=== PATIENT | female | born 1955 | race Caucasian/White ===

== ENCOUNTER 2024-09-14 13:47 | Inpatient (IN) | payer MEDICARE, OTHER ==
[~2024-09-14] VITALS: Ht 160 cm; Wt 112.5 kg
[2024-09-14] MEDS ORDERED: POLY119P2 PO (14:06)
[2024-09-14] MEDS ORDERED: DIVA250T4 PO (14:06)
[2024-09-14] MEDS ORDERED: PANT40TA49 PO (14:06)
[2024-09-14] MEDS ORDERED: ASCO500C18 PO (14:06)
[2024-09-14] MEDS ORDERED: DOCU100T2 PO (14:06)
[2024-09-14] MEDS ORDERED: OLAN7.5T3 PO (14:06)
[2024-09-14] MEDS ORDERED: SENN8.6T19 PO (14:06)
[2024-09-14] MEDS ORDERED: APIX5TAB4 PO (14:06)
[2024-09-14] MEDS ORDERED: LOSA100T31 PO (14:06)
[2024-09-14] MEDS ORDERED: MAGN400O6 PO (14:06)
[2024-09-14] MEDS ORDERED: FLUT16SP EA NOSTRIL (14:06)
[2024-09-14] MEDS ORDERED: OLAN5TAB3 PO (14:06)
[2024-09-14] MEDS ORDERED: MULT-594 PO (14:06)
[2024-09-14] MEDS ORDERED: HYDR-894 PO (14:06)
[2024-09-14] MEDS ORDERED: FURO40TA5 PO (14:06)
[2024-09-14] MEDS ORDERED: ALBU5SOL7 IH (14:07)
[2024-09-14 14:37] LABS: BASOPHILS % (AUTO) 0.7 % (0.0-2.0); EOSINOPHILS % (AUTO) 0.8 % (0.0-7.0); HEMATOCRIT 43.2 % (31.2-41.9); HEMOGLOBIN 14.3 g/dL (10.9-14.3); LYMPHOCYTES # (AUTO) 1.1 K/uL (0.8-4.8); LYMPHOCYTES % (AUTO) 19.7 % (20.5-51.5); MEAN CORPUSCULAR HEMOGLOBIN 32.3 uug (24.7-32.8); MEAN CORPUSCULAR HGB CONC 33 g/dL (32.3-35.6); MEAN CORPUSCULAR VOLUME 97.7 fL (75.5-95.3); MONOCYTES # (AUTO) 0.7 K/uL (0.1-1.30); MONOCYTES % (AUTO) 13.2 % (0.0-11.0); NEUTROPHILS # (AUTO) 3.7 K/uL (1.8-8.9); NEUTROPHILS % (AUTO) 65.6 % (38.5-71.5); PLATELET COUNT (AUTO) 243 K/uL (179-408); RED BLOOD CELL COUNT(AUTO) 4.42 MIL/uL (3.63-4.92); RED CELL DISTRIBUTION WIDTH 16.6 % (12.3-17.7); WHITE BLOOD COUNT (AUTO) 5.6 K/uL (3.8-11.8)
[2024-09-14 14:42] LABS: CALCIUM 8.9 mg/dL (8.5-10.1); CARBON DIOXIDE 33 mmol/L (21-32); CHLORIDE 103 mmol/L (98-107); CREATININE 0.7 mg/dL (0.6-1.3); GLUCOSE 93 mg/dL (74-106); POTASSIUM 4.1 mmol/L (3.5-5.1); SODIUM SERUM 143 mmol/L (136-145); UREA NITROGEN, BLOOD 15 mg/dL (7-18)
[2024-09-14 14:43] LABS: DIFFERENTIAL COMMENT 1
[2024-09-14 14:55] LABS: ALANINE AMINOTRANSFERASE 19 U/L (14-59); ALBUMIN 3.1 g/dL (3.4-5.0); ALKALINE PHOSPHATASE 73 U/L (50-136); ASPARTATE AMINOTRANSFERASE 15 U/L (15-37); BILIRUBIN,DIRECT 0.2 mg/dL (0.0-0.2); BILIRUBIN,TOTAL 0.4 mg/dL (0.2-1.0); TOTAL PROTEIN, SERUM 7.1 g/dL (6.4-8.2)
[2024-09-14 15:13] LABS: NT-PRO BNP 316 pg/mL (0-125)
[2024-09-14] MEDS ORDERED: NITROGLYCERIN OINT 1 GM PACKET TP ONE (15:21)
[2024-09-14] MEDS ORDERED: FUROSEMIDE 40 MG/4 ML VIAL ONE (15:21)
[2024-09-14] MEDS: NITROGLYCERIN OINT 1 GM PACKET TP ONE (15:32)
[2024-09-14] MEDS: FUROSEMIDE 40 MG/4 ML VIAL IV ONE (15:32)
[2024-09-14 15:41] LABS: *BILIRUBIN,URIN NEGATIVE (NEGATIVE); *BLOOD, URINE NEGATIVE (NEGATIVE); *CLARITY,URINE CLEAR (CLEAR); *COLOR,URINE LIGHT YELLOW (YELLOW); *KETONES,URINE NEGATIVE (NEGATIVE); *PROTEIN,URINE NEGATIVE (NEGATIVE); *UROBILINOGEN,URINE 0.2 E.U./dl (NORMAL); LEUKOCYTE ESTERASE ,URINE 1+ (NEGATIVE); NITRITE, URINE NEGATIVE (NEGATIVE); PH,URINE 5.5 (5.0-8.0); UGLUCOSE NEGATIVE (NEGATIVE)
[2024-09-14 15:48] LABS: BACTERIA,URINE MODERATE /HPF (NONE SEEN); RBC,URINE NONE SEEN /HPF (0-3)
[2024-09-14 15:49] LABS: SQUAMOUS EPITHELIAL CELL,UR FEW /HPF (NONE SEEN)
[2024-09-14] MEDS ORDERED: APIX5TAB PO (17:27)
[2024-09-14] MEDS ORDERED: ASCO500T85 PO (17:27)
[2024-09-14] MEDS ORDERED: ALBU8.5H8 IH (17:28)
[2024-09-14 18:25] VITALS: BP 111/83; TEMP 98.6; O2SAT 94
[2024-09-14 20:00] VITALS: BP 102/57; TEMP 97; O2SAT 95
[2024-09-14] MEDS ORDERED: hydrALAZINE HCL 25 MG TABLET PO PRN (21:30)
[2024-09-14] MEDS ORDERED: ONDANSETRON 4 MG/2 ML VIAL IV PRN (21:30)
[2024-09-14] MEDS ORDERED: POLYETHYLENE GLYCOL 3350 238 GM POWDER PO PRN (21:30)
[2024-09-14] MEDS ORDERED: MAGNESIUM HYDROXIDE 30 ML LIQUID UDC PO PRN ×2 (21:30)
[2024-09-14] MEDS ORDERED: ACETAMINOPHEN 325 MG TABLET PO PRN (21:30)
[2024-09-14] MEDS ORDERED: REMEDY ESSENTIAL ZINC PASTE 113 GM TP PRN (21:30)
[2024-09-14] MEDS ORDERED: MIRALAX 17 GM POWD.PACK PO PRN (21:45)
[2024-09-14] MEDS ORDERED: ALBUTEROL SULFATE 2.5 MG/3 ML NEBU NEB PRN (21:45)
[2024-09-14] MEDS ORDERED: MEROPENEM 1GM/NS 100ML IVPB **ER PYXIS ONLY IV ONE (21:54)
[2024-09-14] MEDS ORDERED: VANCOMYCIN IV 200 ML ONE (21:54)
[2024-09-14] MEDS: MEROPENEM 1 G in IV NORMAL SALINE 100 ML IV ONE (22:07)
[2024-09-14 22:11] LABS: THYROID STIMULATING HORMONE 3.278 mIU/mL (0.358-3.740)
[2024-09-14] MEDS: VANCOMYCIN IV 1,000 MG in IV DEXTROSE 5% 250 ML IV ONE (22:57)
[2024-09-14] MEDS ORDERED: BUMETANIDE 2.5 MG/10 ML VIAL ONE (23:46)
[2024-09-14] MEDS ORDERED: BUMETANIDE 1 MG/4 ML VIAL ONE (23:47)
[2024-09-15] VITALS: BP 102/53; TEMP 97.4; O2SAT 94
[2024-09-15] MEDS: BUMETANIDE INJ 6 MG in IV DEXTROSE 5% 36 ML IV ONE (00:28)
[2024-09-15 04:00] VITALS: BP 104/68; TEMP 98.1; O2SAT 95
[2024-09-15 04:13] LABS: BASOPHILS % (AUTO) 0.6 % (0.0-2.0); EOSINOPHILS # (AUTO) 0.1 K/uL (0.0-0.7); EOSINOPHILS % (AUTO) 0.9 % (0.0-7.0); HEMATOCRIT 40.6 % (31.2-41.9); HEMOGLOBIN 13.7 g/dL (10.9-14.3); LYMPHOCYTES # (AUTO) 1.3 K/uL (0.8-4.8); LYMPHOCYTES % (AUTO) 21.1 % (20.5-51.5); MEAN CORPUSCULAR HEMOGLOBIN 32.6 uug (24.7-32.8); MEAN CORPUSCULAR HGB CONC 34 g/dL (32.3-35.6); MEAN CORPUSCULAR VOLUME 96.4 fL (75.5-95.3); MONOCYTES # (AUTO) 0.9 K/uL (0.1-1.30); MONOCYTES % (AUTO) 14.8 % (0.0-11.0); NEUTROPHILS # (AUTO) 3.9 K/uL (1.8-8.9); NEUTROPHILS % (AUTO) 62.6 % (38.5-71.5); PLATELET COUNT (AUTO) 223 K/uL (179-408); RED BLOOD CELL COUNT(AUTO) 4.21 MIL/uL (3.63-4.92); RED CELL DISTRIBUTION WIDTH 16.2 % (12.3-17.7); WHITE BLOOD COUNT (AUTO) 6.3 K/uL (3.8-11.8)
[2024-09-15 04:15] LABS: DIFFERENTIAL COMMENT 1
[2024-09-15 04:46] LABS: ALANINE AMINOTRANSFERASE 15 U/L (14-59); ALBUMIN 2.7 g/dL (3.4-5.0); ALKALINE PHOSPHATASE 64 U/L (50-136); ASPARTATE AMINOTRANSFERASE 9 U/L (15-37); BILIRUBIN,TOTAL 0.4 mg/dL (0.2-1.0); CALCIUM 8.4 mg/dL (8.5-10.1); CARBON DIOXIDE 36 mmol/L (21-32); CHLORIDE 105 mmol/L (98-107); CREATININE 0.6 mg/dL (0.6-1.3); GLUCOSE 90 mg/dL (74-106); PHOSPHOROUS 4.7 mg/dL (2.5-4.9); SODIUM SERUM 144 mmol/L (136-145); TOTAL PROTEIN, SERUM 6.2 g/dL (6.4-8.2); UREA NITROGEN, BLOOD 15 mg/dL (7-18)
[2024-09-15] MEDS: PANTOPRAZOLE SODIUM 40 MG TABLET.DR PO SCH (06:08)
[2024-09-15] MEDS ORDERED: PANTOPRAZOLE SODIUM 40 MG TABLET.DR PO SCH (07:00)
[2024-09-15] MEDS: MEROPENEM 1 G in IV NORMAL SALINE 100 ML IV SCH (07:50)
[2024-09-15] MEDS: VANCOMYCIN IV 1,250 MG in IV DEXTROSE 5% 250 ML IV SCH (08:28)
[2024-09-15] MEDS: OLANZAPINE 5 MG TABLET PO SCH (08:46)
[2024-09-15] MEDS: FUROSEMIDE 40 MG TABLET PO SCH (08:47)
[2024-09-15] MEDS: APIXABAN 5 MG TABLET PO SCH (08:47)
[2024-09-15] MEDS: ASCORBIC ACID 500 MG TABLET PO SCH (08:47)
[2024-09-15] MEDS: DIVALPROEX 250 MG TABLET.DR PO SCH (08:47)
[2024-09-15] MEDS: LOSARTAN POTASSIUM 50 MG TABLET PO SCH (08:49)
[2024-09-15] MEDS: SENNOSIDES 1 TABLET PO SCH (08:49)
[2024-09-15] MEDS: FLUTICASONE PROP NASAL SPRAY 16 GM BOTTLE NS SCH (09:49)
[2024-09-15 12:00] VITALS: BP 120/66; TEMP 98.3; O2SAT 94
[2024-09-15] MEDS ORDERED: ALBUTEROL SULFATE 1.25 MG/3 ML NEBU NEB PRN (12:45)
[2024-09-15] MEDS ORDERED: IPRATROPIUM BROMIDE 0.5 MG/2.5 ML NEBU NEB PRN (12:45)
[2024-09-15] MEDS: ACETAzolamide SODIUM 500 MG VIAL IV ONE (13:27)
[2024-09-15 14:20] VITALS: O2SAT 96
[2024-09-15 19:50] VITALS: BP 120/85; TEMP 97.9; O2SAT 92
[2024-09-15 19:55] VITALS: BP 95/49; TEMP 98; O2SAT 92
[2024-09-15] MEDS: OLANZAPINE 2.5 MG TABLET PO SCH (20:41)
[2024-09-15] MEDS: ATORVASTATIN 40 MG TABLET PO SCH (20:41)
[2024-09-16 01:03] VITALS: BP 118/76; TEMP 97.6; O2SAT 95
[2024-09-16 02:54] VITALS: O2SAT 96
[2024-09-16 07:39] VITALS: BP 120/66; TEMP 98; O2SAT 95
[2024-09-16 11:37] VITALS: BP 108/45; TEMP 97.1; O2SAT 93
[2024-09-16] MEDS ORDERED: POTA10CA43 PO (11:46)
[2024-09-16] MEDS ORDERED: SULF1TAB48 PO (11:46)
[2024-09-16] MEDS ORDERED: FURO20TA4 PO (11:46)
[2024-09-16 13:56] VITALS: O2SAT 96
[2024-09-16 15:01] LABS: CARBON DIOXIDE 35 mmol/L (21-32); CHLORIDE 102 mmol/L (98-107); CREATININE 0.6 mg/dL (0.6-1.3); GLUCOSE 95 mg/dL (74-106); MAGNESIUM 2.1 mg/dL (1.8-2.4); PHOSPHOROUS 3.8 mg/dL (2.5-4.9); POTASSIUM 3.9 mmol/L (3.5-5.1); SODIUM SERUM 143 mmol/L (136-145); UREA NITROGEN, BLOOD 13 mg/dL (7-18)
[2024-09-16 15:09] LABS: BASOPHILS % (AUTO) 0.5 % (0.0-2.0); EOSINOPHILS # (AUTO) 0.1 K/uL (0.0-0.7); EOSINOPHILS % (AUTO) 0.8 % (0.0-7.0); HEMATOCRIT 45.1 % (31.2-41.9); LYMPHOCYTES # (AUTO) 1.2 K/uL (0.8-4.8); LYMPHOCYTES % (AUTO) 18.7 % (20.5-51.5); MEAN CORPUSCULAR HGB CONC 33 g/dL (32.3-35.6); MEAN CORPUSCULAR VOLUME 96.4 fL (75.5-95.3); MONOCYTES # (AUTO) 0.8 K/uL (0.1-1.30); MONOCYTES % (AUTO) 11.6 % (0.0-11.0); NEUTROPHILS # (AUTO) 4.6 K/uL (1.8-8.9); NEUTROPHILS % (AUTO) 68.4 % (38.5-71.5); PLATELET COUNT (AUTO) 234 K/uL (179-408); RED BLOOD CELL COUNT(AUTO) 4.68 MIL/uL (3.63-4.92); RED CELL DISTRIBUTION WIDTH 16.6 % (12.3-17.7); WHITE BLOOD COUNT (AUTO) 6.7 K/uL (3.8-11.8)
[2024-09-16 15:10] LABS: DIFFERENTIAL COMMENT 1
[2024-09-16 15:12] VITALS: BP 119/43; TEMP 98.5; O2SAT 94
== END 2024-09-16 17:45 | DRG 602 ==
LOC: ER 13:47 → TELE3 17:15 → MEDSURG3 09-16 13:54
PROVIDERS: ADMIT Nurse Practitioner Acute Care; ATTEND Nurse Practitioner Acute Care
PROC: 05HC33Z Insertion of Infusion Device into Left Basilic Vein, Percutaneous Approach (ICD-10-PCS; principal; 2024-09-15)
DX: L03.116 Cellulitis of left lower limb (principal); I50.33 Acute on chronic diastolic (congestive) heart failure; D68.59 Other primary thrombophilia; N39.0 Urinary tract infection, site not specified; Z16.24 Resistance to multiple antibiotics; E66.2 Morbid (severe) obesity with alveolar hypoventilation; Z68.41 Body mass index [BMI] 40.0-44.9, adult; E87.3 Alkalosis; I11.0 Hypertensive heart disease with heart failure; L03.115 Cellulitis of right lower limb; I48.91 Unspecified atrial fibrillation; B96.89 Other specified bacterial agents as the cause of diseases classified elsewhere; J44.9 Chronic obstructive pulmonary disease, unspecified; F20.9 Schizophrenia, unspecified; Z74.01 Bed confinement status; F31.9 Bipolar disorder, unspecified; Z88.0 Allergy status to penicillin; Z79.01 Long term (current) use of anticoagulants; Z87.09 Personal history of other diseases of the respiratory system; Z87.440 Personal history of urinary (tract) infections
CPT/HCPCS: 36415; 71045; 83605; 83735; 84100; 84443; 84484; 85025; 85730; 87040; 87086; A4606; A4663; C1758; G0378; J1120; J1938; J2185; J3370; J3490; J3535; J7050